=== PATIENT | male | born 1995 | race Caucasian/White ===

== ENCOUNTER → 2016-05-26 | Outpatient (CLI) | payer OTHER ==
--- NOTE | 2016-05-26 14:26 | DX ---
Left Ankle 3 Views History: Twisting injury playing basketball yesterday. Comparison: None available. Findings: No fracture is identified. Alignment is normal. Bone mineralization is normal. The talar d ome and ankle mortise are intact. There is moderate lateral soft tissue swelling. There is no joint e ffusion. Impression: No acute osseous findings.
== END ==
LOC: BMCIMAGING 13:31
PROVIDERS: ATTEND Family Medicine
DX: S99.912A Unspecified injury of left ankle, initial encounter (principal)